=== PATIENT | female | born 1965 | race Hispanic/Latino ===

== ENCOUNTER 2018-04-06 08:49 | Day surgery (SDC) | payer BC ==
[2018-04-06] MEDS ORDERED: Propofol 10 mg/ml Inj (20 ML) ONE (09:43)
[2018-04-06 10:22] VITALS: TEMP 97.6
[2018-04-06 13:37] VITALS: BP 99/62; PULSE 54; RESP 18; O2SAT 97
== END 2018-04-06 11:15 | disposition home or self-care (01) ==
LOC: C.ENDO 08:49
PROVIDERS: ATTEND Internal Medicine Gastroenterology
DX: Z12.11 Encounter for screening for malignant neoplasm of colon (principal); D12.5 Benign neoplasm of sigmoid colon; K64.1 Second degree hemorrhoids
CPT/HCPCS: 45385; 84703; 88305; J2704